=== PATIENT | female | born 1945 | race African-American/Black ===

== ENCOUNTER 2022-05-05 19:15 | Inpatient (IN) | payer OTHER ==
[~2022-05-05] VITALS: Ht 170.2 cm; Wt 120.0 kg
[2022-05-05] MEDS ORDERED: SODIUM CHLORIDE 0.9% 500 ML IVB ONE (20:00)
[2022-05-05 20:39] LABS: Basophils # (auto) 0 10 ^3/uL (0-0.2); Basophils % (auto) 0.3 % (0.0-2.0); Eosinophils # (auto) 0 10 ^3/uL (0-0.8); Eosinophils % (auto) 0.3 % (0.0-7.0); Hematocrit 44.5 % (36.0-46.0); Hemoglobin 15.2 g/dL (12.2-16.2); Lymphocytes # (auto) 0.8 10 ^3/uL (0.4-5.4); Mean Corpuscular Hemoglobin 30.1 pg (28.0-32.0); Mean Corpuscular Hgb Conc. 34.1 g/dL (32.0-36.0); Mean Corpuscular Volume 88.4 fL (80.0-100.0); Monocytes # (auto) 0.5 10 ^3/uL (0-1.3); Monocytes % (auto) 4.7 % (0.0-12.0); Neutrophils # (auto) 8.9 10 ^3/uL (1.6-8.6); Neutrophils % (auto) 86.7 % (37.0-80.0); Nucleated Red Blood Cells % 0.1 %; Red Blood Cells 5.04 10^6/uL (4.0-5.20); Red Cell Distribution Width 13.4 % (11.8-14.3); White Blood Cell 10.3 10^3/uL (4.4-10.8)
[2022-05-05 20:56] LABS: Albumin 3.8 g/dL (3.4-5.0); BUN/Creatinine Ratio 13.1; Calcium 8.7 mg/dL (8.5-10.1); Magnesium 2.2 mg/dL (1.6-2.6); Potassium 3.8 mmol/L (3.5-5.1)
[2022-05-05 20:58] LABS: Bilirubin, Total 0.6 mg/dL (0.2-1.0); Total Protein 6.9 g/dL (6.4-8.2)
[2022-05-05] MEDS ORDERED: MORPHINE SULFATE INJ 2 MG/ml SYRG IV PRN (22:00)
[2022-05-05] MEDS ORDERED: NITROGLYCERIN 0.4 MG SL TAB SL PRN (22:00)
[2022-05-05] MEDS ORDERED: LOVA40TA72 PO (22:11)
[2022-05-05] MEDS ORDERED: MEMA28CA15 PO (22:11)
[2022-05-05] MEDS ORDERED: LISI20TA28 PO (22:11)
[2022-05-05] MEDS ORDERED: DEXTROSE (50%) 50ML SYRG IV PRN (22:15)
[2022-05-05] MEDS ORDERED: cefTRIAXone 1GM/50ML D5W 50 ML IV ONE (22:15)
[2022-05-05 22:54] LABS: Cholesterol 162 mg/dL (< 200); Triglycerides 88 mg/dL (< 150)
[2022-05-05 22:57] LABS: HDL Cholesterol 56 mg/dL (40-59); LDL Cholesterol 86 mg/dL (< 100)
[2022-05-05] MEDS: SODIUM CHLORIDE 0.9% 1,000 ML IV SCH (23:09)
[2022-05-05] MEDS ORDERED: ACETAMINOPHEN 650 MG RECT SUPP PR ONE (23:30)
[2022-05-06 00:16] LABS: Barbiturate Scree,Urine NEGATIVE (NEGATIVE); Benzodiazephine Screen, Urine NEGATIVE (NEGATIVE); Cannabinoid Screen, Urine NEGATIVE (NEGATIVE); Cocaine Screen, Urine NEGATIVE (NEGATIVE); Opiate Scree,Urine NEGATIVE (NEGATIVE); Phencyclidine Screen, Urine NEGATIVE (NEGATIVE); Urine Bacteria FEW /hpf (None Seen); Urine Blood Negative /uL (Negative); Urine Specific Gravity 1.021 (1.001-1.035); Urine WBC 1 /hpf (0 - 5)
[2022-05-06 00:50] LABS: Amphetamine Screen, Urine NEGATIVE (NEGATIVE)
[2022-05-06 01:03] LABS: Alcohol, Urine < 3.0 mg/dL (0-10)
[2022-05-06] MEDS: InsuLIN REG 1unit/0.01ml Soln (100units/ml) SC SCH ×2 (07:00→12:45)
[2022-05-06] MEDS: ACCU-CHEK COMFORT CURVE STRIP VI SCH ×2 (07:09→12:45)
[2022-05-06] MEDS ORDERED: cefTRIAXone 1GM/50ML D5W 50 ML IV SCH (09:00)
[2022-05-06] MEDS: SODIUM CHLORIDE 0.9% 1,000 ML IV SCH (09:36)
[2022-05-06] MEDS ORDERED: ENOXAPARIN SOD 40 MG/0.4 ML SYRINGE SC SCH (10:00)
[2022-05-06] MEDS ORDERED: LISINOPRIL 20 MG TAB PO SCH (10:00)
[2022-05-06] MEDS ORDERED: MEMANTINE 28 MG PO SCH (10:00)
[2022-05-06] MEDS ORDERED: PRAVASTATIN SODIUM 20 MG TAB PO SCH (10:00)
[2022-05-06] MEDS ORDERED: LORazepam 2MG/ML-1ML VIAL IV PRN ×2 (11:00)
[2022-05-06] MEDS ORDERED: hydrALAZINE HCL 20 MG/ML VL IV PRN (11:30)
[2022-05-06 12:17] LABS: Folate (Folic Acid) 13.56 ng/mL (5.38-24)
[2022-05-06] MEDS ORDERED: CYAN1TAB14 PO (13:20)
[2022-05-06] MEDS ORDERED: CLON0.2D3 TD (13:20)
[2022-05-06 14:36] VITALS: BP 146/83
== END 2022-05-06 15:08 | disposition home or self-care (01) | DRG 948 ==
LOC: EDBD 19:15 → ER 19:15 → TELE 22:03
PROVIDERS: ADMIT Registered Nurse; ATTEND Hospitalist
DX: R41.82 Altered mental status, unspecified (principal); N39.0 Urinary tract infection, site not specified; Z68.41 Body mass index [BMI] 40.0-44.9, adult; E11.9 Type 2 diabetes mellitus without complications; E66.01 Morbid (severe) obesity due to excess calories; G30.9 Alzheimer's disease, unspecified; G40.909 Epilepsy, unspecified, not intractable, without status epilepticus; Z20.822 Contact with and (suspected) exposure to COVID-19; F02.80 Dementia in other diseases classified elsewhere, unspecified severity, without behavioral disturbance, psychotic disturbance, mood disturbance, and anxiety; I10 Essential (primary) hypertension; Z79.899 Other long term (current) drug therapy; Z90.710 Acquired absence of both cervix and uterus; Z90.49 Acquired absence of other specified parts of digestive tract
CPT/HCPCS: 36415; 70450; 71045; 80053; 80061; 80307; 81001; 82607; 82746; 82962; 83036; 83605; 83735; 84443; 84484; 85025; 87040; 87426; 93005; 93306; 93886; 96361; 96365; 96366; 96372; 99291; G0378; J0696; J1815